=== PATIENT | male | born 1995 | race Hispanic/Latino ===

== ENCOUNTER 2017-04-28 01:46 | Emergency (ER) | payer OTHER ==
[~2017-04-28] VITALS: Ht 193 cm; Wt 149.7 kg
--- NOTE | 2017-04-28 02:08 | ED GI/GU/ABDOMINAL COMPLAINT ---
History of Present Illness General Chief Complaint: Abdominal Pain/Flank Pain Stated Complaint: SEVERE ABD PAIN SEEN EARLIER AT URGENT CARE Source: patient Exam Limitations: no limitations Vital Signs & Intake/Output Vital Signs & Intake/Output Vital Signs Date Time Temp Pulse Resp B/P B/P Pulse O2 O2 Flow FiO2 Mean Ox Delivery Rate 04/28 0325 97.2 70 18 127/58 98 Room Air 04/28 0150 98.4 74 18 134/63 96 Room Air Allergies Coded Allergies: No Known Drug Allergies (NKDA 04/28/17) Reconcile Medications Tramadol HCl (Ultram) 50 MG TABLET 1-2 TAB PO Q6P PRN PAIN Triage Note: PT TO ED C/O PAIN ACROSS UPPER ABD, CONSTANT WITH FLARE UPS FOR 24 HRS. C/O SOME NAUSEA, DENIES V/D. DENIES UTI S/S BUT STATES HAS NOT VOIDED 1999 LAST EVENIN. LAST BM 2 DAYS AGO "I USUALLY GO TWICE A DAY" WENT TO URGENT CARE, DX WITH GASTRITIS. STATES HE HAS WENT TO BED AT 2200 AND HAS ONLY BEEN ABLE TO SLEEP FOR 1 1/2 HRS Triage Nurses Notes Reviewed? yes HPI: Patient presents for evaluation of upper abdominal pain that began abruptly last night while he was asleep. The patient's pain has been constant and rated at a 6 out of 10 with severe exacerbations up to a 10 out of 10. He was evaluated in a walk-in clinic and diagnosed with gastritis and prescribed dicyclomine. The pain is described as a sharp pressure sensation that gets worse with eating. The patient has felt nauseous but has had no vomiting diarrhea or dysuria. He likewise denies fever rashes known ill contacts or recent travel. Past History Travel History Traveled to [place] past 21 day No Medical History Any Pertinent Medical History? see below for history Respiratory: asthma Gastrointestinal: GERD Surgical History Surgical History: non-contributory Psychosocial History What is your primary language Slovak Tobacco Use: Never used ETOH Use: denies use Illicit Drug Use: denies illicit drug use Family History Hx Contributory? No Review of Systems Review of Systems Constitutional: Reports: no symptoms. EENTM: Reports: no symptoms. Respiratory: Reports: no symptoms. Cardiovascular: Reports: no symptoms. GI: Reports: see HPI. Genitourinary: Reports: no symptoms. Musculoskeletal: Reports: no symptoms. Skin: Reports: no symptoms. Neurological/Psychological: Reports: no symptoms. Hematologic/Endocrine: Reports: no symptoms. Immunologic/Allergic: Reports: no symptoms. All Other Systems: Reviewed and Negative Physical Exam Physical Exam Gastrointestinal: see below Comments: Gen.: Well-nourished, well-developed, no acute respiratory distress. Head: Normocephalic, atraumatic. Eyes: Normal inspection bilaterally Ears: Normal inspection bilaterally Nose: Normal inspection Throat/mouth : Moist mucosa Neck: Supple, full range of motion, no goiter Heart: Regular rate and rhythm, no murmurs rubs or gallops Lungs: Clear to auscultation bilaterally with normal air entry Chest: Nontender Back: Normal range of motion, nontender. No CVAT Abdomen: Soft, bilateral upper abdominal tenderness without rebound or guarding, nondistended, normal bowel sounds Extremities: Normal range of motion grossly, equal radial pulses, no cyanosis clubbing or edema Neurologic: Cranial nerves grossly intact, speech is clear Skin: warm and dry Psychiatric: Calm, cooperative, no apparent delusions or hallucinations Core Measures ACS in differential dx? No Severe Sepsis Present: No Septic Shock Present: No Progress Differential Diagnosis: biliary colic, inflamm bowel dis, pancreatitis, peptic ulcer, PUD/GERD Plan of Care: Orders Procedure Date/time Status URINALYSIS 04/28 207 Active LIPASE 04/28 207 Complete COMPREHENSIVE METABOLIC PANEL 04/28 207 Complete CBC WITHOUT DIFFERENTIAL 04/28 207 Complete Current Medications Sig/Alfredo Start time Last Medication Dose Stop Time Status Admin Morphine Sulfate 6 MG ONCE ONE 04/28 330 UNVr (Morphine) 04/28 033 Laboratory Tests 04/28/17 0220: Anion Gap 11, Estimated GFR > 60, BUN/Creatinine Ratio 15.6, Glucose 98, Calcium 9.6, Total Bilirubin 0.4, AST 29, ALT 64, Alkaline Phosphatase 99, Total Protein 6.7, Albumin 4.3, Globulin 2.4, Albumin/Globulin Ratio 1.8, Lipase 58, CBC w Diff NO MAN DIFF REQ, RBC 5.15, MCV 88.2, MCH 29.6, RDW 13.9, MPV 8.5, Gran % 68.4, Lymphocytes % 11.4 L, Monocytes % 14.5 H, Eosinophils % 5.6 H, Basophils % 0.1, Absolute Granulocytes 9.5 H, Absolute Lymphocytes 1.6, Absolute Monocytes 2.0 H, Absolute Eosinophils 0.8, Absolute Basophils 0, PUBS MCHC 33.6 Diagnostic Imaging: Discussed w/RAD: CT Scan. Radiology Impression: PATIENT: DANYEL BROWN PRESENT AGE : 21 PATIENT ACCOUNT NO: [id number] : 93 LOCATION: [facility] ORDERING PHYSICIAN: HANSEL FERRO MD SERVICE DATE: 04/28/17-206 EXAM TYPE: CAT - CT ABD & PELVIS W/O IV CONTRAS EXAMINATION: CT ABDOMEN AND PELVIS WITHOUT CONTRAST CLINICAL INFORMATION: Epigastric abdominal pain COMPARISON: None TECHNIQUE: Multidetector volumetric imaging was performed from the superior aspect of the liver through the pubic symphysis. Sagittal and coronal reformatted images were obtained on the technologist's workstation. DLP: 1634.55 mGy-cm FINDINGS: LUNG BASES: The visualized lung bases are unremarkable. LIVER, GALLBLADDER, AND BILIARY TREE: The liver is normal in size, shape, and attenuation. No focal hepatic lesion or biliary ductal dilatation is present. The gallbladder is unremarkable with no evidence of radiopaque gallstones, gallbladder wall thickening, or obvious pericholecystic inflammatory changes. PANCREAS: Unremarkable. SPLEEN: Unremarkable. ADRENAL GLANDS: Unremarkable. KIDNEYS AND URETERS: The kidneys are normal in size, shape, and attenuation. No hydronephrosis, hydroureter, or calculi seen. No perinephric stranding. BLADDER: Unremarkable. GASTROINTESTINAL TRACT: The small and large bowel are unremarkable. The appendix is unremarkable. ABDOMINAL WALL: No significant hernia is appreciated. LYMPH NODES: Normal. VASCULAR: Unremarkable. PELVIC VISCERA: Unremarkable. OSSEOUS STRUCTURES: Unremarkable. IMPRESSION: No acute findings identified in the abdomen/pelvis. DICTATED BY: JUANPABLO TRUJILLO MD DATE/ TIME DICTATED:04/28/17307 PEST CONTROL WORKER:NORA DATE/TIME TRANSCRIBED: 04/28/17307 CONFIDENTIAL, DO NOT COPY WITHOUT APPROPRIATE AUTHORIZATION. < Electronically signed in Other Vendor System> SIGNED BY: JUANPABLO TRUJILLO MD 04/28/17319 Initial ED EKG: none Departure Departure Disposition: HOME OR SELF CARE Condition: Stable Clinical Impression Primary Impression: Nonspecific abdominal pain Referrals: KALIE DOUGLAS APRN (PCP/Family) Additional Instructions: Follow-up with your primary care doctor for reevaluation of your abdominal pain. The cause for your pain is unclear at this point. Continue your current medications. Add tramadol if necessary for pain. Begin taking the dicyclomine prescription that was prescribed at the walk-in center. Increase your fluid intake. Return if any concerns or sudden worsening. Departure Forms: Customer Survey General Discharge Information Prescriptions: Current Visit Scripts Tramadol HCl (Ultram) 1-2 TAB PO Q6P PRN PAIN #20 TAB
[2017-04-28 02:33] LABS: ABSOLUTE BASOPHIL COUNT 0 /CUMM (0.0-0.2); ABSOLUTE EOSINOPHIL COUNT 0.8 /CUMM (0.0-0.7); ABSOLUTE GRANULOCYTE CT 9.5 /CUMM (1.4-6.5); ABSOLUTE LYMPH COUNT 1.6 /CUMM (1.2-3.4); BASOPHIL % 0.1 % (0.0-2.0); EOSINOPHIL % 5.6 % (0-5); GRANULOCYTE % 68.4 % (42.2-75.2); HEMATOCRIT 45.4 % (42-52); MEAN CORPUSCULAR HGB 29.6 PG (27.0-31.0); MEAN CORPUSCULAR HGB CONC 33.6 G/DL (33.0-37.0); MEAN CORPUSCULAR VOLUME 88.2 FL (80.0-94.0); MEAN PLATELET VOLUME 8.5 FL (7.4-10.4); PLATELET COUNT 226 /CUMM (130-400); RBC DISTRIBUTION WIDTH 13.9 % (11.5-14.5); RED BLOOD CELL CT 5.15 /CUMM (4.70-6.10); WHITE BLOOD CELL COUNT 13.8 /CUMM (4.8-10.8)
--- NOTE | 2017-04-28 03:20 | CT SCAN REPORT ---
EXAMINATION: CT ABDOMEN AND PELVIS WITHOUT CONTRAST CLINICAL INFORMATION: Epigastric abdominal pain COMPARISON: None TECHNIQUE: Multidetector volumetric imaging was performed from the superior aspect of the liver through the pubic symphysis. Sagittal and coronal reformatted images were obtained on the technologist's workstation. DLP: 1634.55 mGy-cm FINDINGS: LUNG BASES: The visualized lung bases are unremarkable. LIVER, GALLBLADDER, AND BILIARY TREE: The liver is normal in size, shape, and attenuation. No focal hepatic lesion or biliary ductal dilatation is present. The gallbladder is unremarkable with no evidence of radiopaque gallstones, gallbladder wall thickening, or obvious pericholecystic inflammatory changes. PANCREAS: Unremarkable. SPLEEN: Unremarkable. ADRENAL GLANDS: Unremarkable. KIDNEYS AND URETERS: The kidneys are normal in size, shape, and attenuation. No hydronephrosis, hydroureter, or calculi seen. No perinephric stranding. BLADDER: Unremarkable. GASTROINTESTINAL TRACT: The small and large bowel are unremarkable. The appendix is unremarkable. ABDOMINAL WALL: No significant hernia is appreciated. LYMPH NODES: Normal. VASCULAR: Unremarkable. PELVIC VISCERA: Unremarkable. OSSEOUS STRUCTURES: Unremarkable. IMPRESSION: No acute findings identified in the abdomen/pelvis.
[2017-04-28 03:25] VITALS: BP 127/58
[2017-04-28] MEDS ORDERED: ULTRAM50 M1 PO (03:28)
== END 2017-04-28 03:38 ==
LOC: ERH 01:46
PROVIDERS: Emergency Medicine
DX: R10.11 Right upper quadrant pain (principal); R10.12 Left upper quadrant pain
CPT/HCPCS: 74176; 96372